=== PATIENT | female | born 1990 | race Caucasian/White ===

== ENCOUNTER 2018-12-07 16:05 | Emergency (ER) | payer OTHER ==
[2018-12-07 18:29] LABS: ADD MAN DIFF? NO
[2018-12-07 18:34] LABS: BASOPHIL # 0.1 10^3/ul (0.0-0.1); EOSINOPHILS # 0.1 10^3/ul (0.0-0.5); EOSINOPHILS % 2.2 % (0.0-7.0); HEMATOCRIT 37.9 % (37.0-47.0); HEMOGLOBIN 11.9 g/dl (12.0-16.0); LYMPHOCYTES # 1.9 10^3/ul (0.8-2.9); LYMPHOCYTES % 31.9 % (15.0-51.0); MEAN CORPUSCULAR HGB CONC 31.4 g/dl (32.0-37.0); MEAN CORPUSCULAR VOLUME 86.1 fl (82.0-101.0); MEAN PLATELET VOLUME 8.9 fl (7.4-10.4); MONOCYTE # 0.5 10^3/ul (0.3-0.9); MONOCYTES % 7.8 % (0.0-11.0); NEUTROPHIL # 3.4 10^3/ul (1.6-7.5); NEUTROPHILS % 56.8 % (39.0-77.0); PLATELET COUNT 348 10^3/UL (140-415); RED CELL DISTRIBUTION WIDTH 18.5 % (11.5-14.5)
[2018-12-07 18:34] LABS: WHITE BLOOD COUNT 5.9 10^3/ul (4.8-10.8)
[2018-12-07 18:42] LABS: INR 1.03; PROTIME 13.6 Sec (11.9-14.9); PT RATIO 1.1
[2018-12-07 18:43] LABS: PARTIAL THROMBOPLASTIN TIME 33.4 Sec (23.0-35.0)
[2018-12-07 18:44] LABS: ALANINE AMINOTRANSFERASE 13 IU/L (13-69); ALBUMIN/GLOBULIN RATIO 1.25; ALKALINE PHOSPHATASE 82 IU/L (42-121); ANION GAP 12 (5-13); ASPARTATE AMINO TRANSFERASE 31 IU/L (15-46); BILIRUBIN,INDIRECT 0.4 mg/dl (0-1.1); BILIRUBIN,TOTAL 0.4 mg/dl (0.2-1.3); BLOOD UREA NITROGEN 16 mg/dl (7-20); CALCIUM 9.1 mg/dl (8.4-10.2); CARBON DIOXIDE 22 mmol/L (21-31); CHLORIDE 108 mmol/L (97-110); CREATININE 0.55 mg/dl (0.44-1.00); Estimated GFR > 60 mL/min (>60); GLUCOSE 100 mg/dl (70-220); LIPASE 48 U/L (23-300); SODIUM 142 mmol/L (135-144)
[2018-12-07 18:45] LABS: POTASSIUM 3.7 mmol/L (3.5-5.1)
[2018-12-07] MEDS: SOD CHLORIDE 0.9% 500 ML IV (19:36)
[2018-12-07] MEDS: morphine 4 MG/ML VIAL IV (19:36)
[2018-12-07] MEDS: ONDANSETRON 4 MG INJ IV (19:36)
[2018-12-07] MEDS: IOHEXOL 300MG/ML 150 ML BTL (19:47)
[2018-12-07] MEDS: SOD CHLORIDE 0.9% 100 ML (19:47)
[2018-12-07] MEDS ORDERED: OXYCODONE/ACETAMINOPHEN (5/325) TAB PO (20:30)
[2018-12-07] MEDS ORDERED: ONDANSETRON (ODT) 4 MG TAB ODT (20:51)
== END 2018-12-07 20:55 | disposition home or self-care (01) ==
LOC: E/R 20:55
DX: R10.84 Generalized abdominal pain (principal); R40.2142 Coma scale, eyes open, spontaneous, at arrival to emergency department; R40.2362 Coma scale, best motor response, obeys commands, at arrival to emergency department; R40.2252 Coma scale, best verbal response, oriented, at arrival to emergency department; R11.2 Nausea with vomiting, unspecified; Z85.038 Personal history of other malignant neoplasm of large intestine
CPT/HCPCS: 74177; 80053; 83690; 84703; 85025; 85610; 85730; 96374; 96375; 99285-25

== ENCOUNTER 2019-06-10 19:28 | Emergency (ER) | payer OTHER ==
[2019-06-10] MEDS: HYDROCODONE/APAP (5/325) TAB PO (20:48)
[2019-06-10] MEDS: LORAZEPAM 1 MG TAB PO (21:15)
[2019-06-10 21:17] LABS: ADD MAN DIFF? NO
[2019-06-10 21:19] LABS: BASOPHILS % 0.6 % (0.0-2.0); EOSINOPHILS # 0.1 10^3/ul (0.0-0.5); HEMATOCRIT 33.3 % (37.0-47.0); HEMOGLOBIN 10.5 g/dl (12.0-16.0); LYMPHOCYTES # 1.2 10^3/ul (0.8-2.9); LYMPHOCYTES % 23.5 % (15.0-51.0); MEAN CORPUSCULAR HEMOGLOBIN 28.1 pg (29.0-33.0); MEAN CORPUSCULAR HGB CONC 31.5 g/dl (32.0-37.0); MEAN PLATELET VOLUME 9.1 fl (7.4-10.4); MONOCYTE # 0.5 10^3/ul (0.3-0.9); MONOCYTES % 10.6 % (0.0-11.0); NEUTROPHIL # 3.1 10^3/ul (1.6-7.5); NEUTROPHILS % 63.1 % (39.0-77.0); PLATELET COUNT 292 10^3/UL (140-415); RED BLOOD COUNT 3.74 10^6/ul (4.20-5.40); RED CELL DISTRIBUTION WIDTH 20.8 % (11.5-14.5)
[2019-06-10 21:35] LABS: ALANINE AMINOTRANSFERASE 17 IU/L (13-69); ALBUMIN 4.2 g/dl (3.3-4.9); ALBUMIN/GLOBULIN RATIO 1.16; ALKALINE PHOSPHATASE 92 IU/L (42-121); ANION GAP 10 (5-13); ASPARTATE AMINO TRANSFERASE 25 IU/L (15-46); BILIRUBIN,INDIRECT 0.5 mg/dl (0-1.1); BILIRUBIN,TOTAL 0.5 mg/dl (0.2-1.3); BLOOD UREA NITROGEN 6 mg/dl (7-20); CALCIUM 9.3 mg/dl (8.4-10.2); CARBON DIOXIDE 26 mmol/L (21-31); CHLORIDE 107 mmol/L (97-110); CREATININE 0.71 mg/dl (0.44-1.00); Estimated GFR > 60 mL/min (>60); GLUCOSE 102 mg/dl (70-220); LIPASE 437 U/L (23-300); POTASSIUM 3.4 mmol/L (3.5-5.1); SODIUM 143 mmol/L (135-144); TOTAL PROTEIN 7.8 g/dl (6.1-8.1)
== END 2019-06-10 22:18 | disposition home or self-care (01) ==
LOC: FTE 19:28
DX: M25.562 Pain in left knee (principal); Z85.9 Personal history of malignant neoplasm, unspecified
CPT/HCPCS: 73562; 80053; 83690; 85025; 99284-25

== ENCOUNTER 2019-07-06 12:06 | Inpatient (IN) | payer OTHER ==
[2019-07-06 15:00] LABS: ADD MAN DIFF? NO
[2019-07-06 15:05] LABS: BASOPHIL # 0.1 10^3/ul (0.0-0.1); EOSINOPHILS # 0.1 10^3/ul (0.0-0.5); EOSINOPHILS % 1.5 % (0.0-7.0); HEMATOCRIT 38.1 % (37.0-47.0); HEMOGLOBIN 12.1 g/dl (12.0-16.0); LYMPHOCYTES # 2.1 10^3/ul (0.8-2.9); LYMPHOCYTES % 26.7 % (15.0-51.0); MEAN CORPUSCULAR HEMOGLOBIN 29.6 pg (29.0-33.0); MEAN CORPUSCULAR HGB CONC 31.8 g/dl (32.0-37.0); MEAN CORPUSCULAR VOLUME 93.2 fl (82.0-101.0); MONOCYTE # 0.3 10^3/ul (0.3-0.9); MONOCYTES % 4.1 % (0.0-11.0); NEUTROPHIL # 5.3 10^3/ul (1.6-7.5); NEUTROPHILS % 66.4 % (39.0-77.0); PLATELET COUNT 312 10^3/UL (140-415); RED BLOOD COUNT 4.09 10^6/ul (4.20-5.40); RED CELL DISTRIBUTION WIDTH 17.4 % (11.5-14.5)
[2019-07-06 15:05] LABS: WHITE BLOOD COUNT 7.9 10^3/ul (4.8-10.8)
[2019-07-06] MEDS: ONDANSETRON 4 MG INJ IV (15:25)
[2019-07-06] MEDS: SOD CHLORIDE 0.9% 1,000 ML IV (15:25)
[2019-07-06] MEDS: morphine 2 MG INJ IV ×2 (15:25→17:21)
[2019-07-06 15:30] LABS: ALANINE AMINOTRANSFERASE 30 IU/L (13-69); ALBUMIN 5.3 g/dl (3.3-4.9); ALKALINE PHOSPHATASE 94 IU/L (42-121); ANION GAP 12 (5-13); ASPARTATE AMINO TRANSFERASE 36 IU/L (15-46); BILIRUBIN,INDIRECT 0.5 mg/dl (0-1.1); BILIRUBIN,TOTAL 0.5 mg/dl (0.2-1.3); BLOOD UREA NITROGEN 19 mg/dl (7-20); CALCIUM 10.2 mg/dl (8.4-10.2); CARBON DIOXIDE 23 mmol/L (21-31); CHLORIDE 104 mmol/L (97-110); CREATININE 0.73 mg/dl (0.44-1.00); Estimated GFR > 60 mL/min (>60); GLUCOSE 96 mg/dl (70-220); LIPASE 69 U/L (23-300); SODIUM 139 mmol/L (135-144); TOTAL PROTEIN 10.1 g/dl (6.1-8.1)
[2019-07-06 15:36] LABS: URINE BLOOD (Dip) POC Trace-lysed (NEGATIVE); URINE GLUCOSE (Dip) POC Negative (NEGATIVE); URINE KETONES (Dip) POC Negative (NEGATIVE); URINE LEUKOCYTE EST (Dip) POC Negative (NEGATIVE); URINE NITRITE (Dip) POC Negative (NEGATIVE); URINE TOTAL PROTEIN POC 1+ (NEGATIVE)
[2019-07-06 15:36] LABS: URINE PH (Dip) POC 5.5 (5.0-8.5)
[2019-07-06] MEDS ORDERED: ACETAMINOPHEN 325 MG TAB PO (18:00)
[2019-07-06] MEDS ORDERED: NACL 0.9% 3 ML SYG IV (18:00)
[2019-07-06] MEDS: HYDROCODONE/APAP (5/325) TAB PO (18:26)
[2019-07-06 18:47] LABS: ADD UMIC YES; UR ASCORBIC ACID NEGATIVE (NEGATIVE); UR BILIRUBIN (Dip) NEGATIVE (NEGATIVE); UR BLOOD (Dip) 1+ mg/dL (NEGATIVE); UR CLARITY SLIGHTLY CLOUDY (CLEAR); UR COLOR YELLOW (YELLOW); UR GLUCOSE (Dip) NEGATIVE (NEGATIVE); UR KETONES (Dip) NEGATIVE (NEGATIVE); UR LEUKOCYTE ESTERASE (Dip) NEGATIVE Leu/ul (NEGATIVE); UR MUCUS FEW /HPF (NONE SEEN); UR NITRITE (Dip) NEGATIVE (NEGATIVE); UR RBC 3 /HPF (0-5); UR SPECIFIC GRAVITY (Dip) 1.018 (1.003-1.030); UR SQUAMOUS EPITHELIAL CELL FEW /HPF (FEW); UR TOTAL PROTEIN (Dip) NEGATIVE (NEGATIVE); UR UROBILINOGEN (Dip) NEGATIVE (NEGATIVE); UR WBC 3 /HPF (0-5)
[2019-07-06] MEDS: LORAZEPAM 0.5 MG TAB PO (18:48)
[2019-07-06] MEDS: FERROUS SULFATE (EC) 325 MG TAB PO (20:48)
[2019-07-06] MEDS: FAMOTIDINE 20 MG TAB PO (20:48)
[2019-07-06] MEDS: HYDROmorphONE 0.5 MG/0.5 ML SYG IV ×2 (20:49→23:56)
[2019-07-07] MEDS: ZOLPIDEM 5 MG TAB PO (01:42)
[2019-07-07 03:09] LABS: ADD UMIC YES; UR ASCORBIC ACID 20 mg/dL (NEGATIVE); UR BACTERIA MANY /HPF (NONE SEEN); UR BILIRUBIN (Dip) NEGATIVE (NEGATIVE); UR BLOOD (Dip) 1+ mg/dL (NEGATIVE); UR CLARITY TURBID (CLEAR); UR COLOR YELLOW (YELLOW); UR GLUCOSE (Dip) NEGATIVE (NEGATIVE); UR KETONES (Dip) NEGATIVE (NEGATIVE); UR LEUKOCYTE ESTERASE (Dip) TRACE Leu/ul (NEGATIVE); UR MUCUS MANY /HPF (NONE SEEN); UR NITRITE (Dip) NEGATIVE (NEGATIVE); UR RBC 21 /HPF (0-5); UR SPECIFIC GRAVITY (Dip) 1.011 (1.003-1.030); UR SQUAMOUS EPITHELIAL CELL MODERATE /HPF (FEW); UR TOTAL PROTEIN (Dip) 2+ mg/dl (NEGATIVE); UR UROBILINOGEN (Dip) NEGATIVE (NEGATIVE); UR WBC 13 /HPF (0-5)
[2019-07-07] MEDS: HYDROmorphONE 0.5 MG/0.5 ML SYG IV ×5 (03:44→22:30)
[2019-07-07 05:50] LABS: ADD MAN DIFF? NO
[2019-07-07 05:52] LABS: WHITE BLOOD COUNT 6.5 10^3/ul (4.8-10.8)
[2019-07-07 05:52] LABS: BASOPHIL # 0.1 10^3/ul (0.0-0.1); BASOPHILS % 0.9 % (0.0-2.0); EOSINOPHILS # 0.2 10^3/ul (0.0-0.5); EOSINOPHILS % 3.7 % (0.0-7.0); HEMOGLOBIN 9.9 g/dl (12.0-16.0); LYMPHOCYTES # 2.4 10^3/ul (0.8-2.9); LYMPHOCYTES % 37.2 % (15.0-51.0); MEAN CORPUSCULAR HEMOGLOBIN 29.3 pg (29.0-33.0); MEAN CORPUSCULAR HGB CONC 30.9 g/dl (32.0-37.0); MEAN CORPUSCULAR VOLUME 94.7 fl (82.0-101.0); MEAN PLATELET VOLUME 9.3 fl (7.4-10.4); MONOCYTE # 0.6 10^3/ul (0.3-0.9); MONOCYTES % 9.8 % (0.0-11.0); NEUTROPHIL # 3.1 10^3/ul (1.6-7.5); NEUTROPHILS % 48.1 % (39.0-77.0); PLATELET COUNT 256 10^3/UL (140-415); RED BLOOD COUNT 3.38 10^6/ul (4.20-5.40); RED CELL DISTRIBUTION WIDTH 17.2 % (11.5-14.5)
[2019-07-07 06:18] LABS: ALANINE AMINOTRANSFERASE 25 IU/L (13-69); ALBUMIN 3.7 g/dl (3.3-4.9); ALBUMIN/GLOBULIN RATIO 1.19; ALKALINE PHOSPHATASE 58 IU/L (42-121); ANION GAP 5 (5-13); ASPARTATE AMINO TRANSFERASE 25 IU/L (15-46); BILIRUBIN,INDIRECT 0.3 mg/dl (0-1.1); BILIRUBIN,TOTAL 0.3 mg/dl (0.2-1.3); BLOOD UREA NITROGEN 16 mg/dl (7-20); CALCIUM 8.9 mg/dl (8.4-10.2); CARBON DIOXIDE 24 mmol/L (21-31); CHLORIDE 107 mmol/L (97-110); CHOLESTEROL 234 mg/dl (100-200); Estimated GFR > 60 mL/min (>60); GLUCOSE 88 mg/dl (70-220); MAGNESIUM 1.7 mg/dl (1.7-2.5); SODIUM 136 mmol/L (135-144); TOTAL PROTEIN 6.8 g/dl (6.1-8.1); TRIGLYCERIDES 188 mg/dl (0-149)
[2019-07-07 06:30] LABS: CHOL/HDL RATIO 1.7 RATIO; HDL CHOLESTEROL 136 mg/dl (34-82); LDL CHOLESTEROL,CALCULATED 60 mg/dl
[2019-07-07] MEDS: LORAZEPAM 0.5 MG TAB PO ×2 (06:44→14:08)
[2019-07-07] MEDS: PANTOPRAZOLE (EC) 40 MG TAB PO (06:44)
[2019-07-07] MEDS: SOD CHLORIDE 0.9% 1,000 ML IV ×2 (06:45→17:06)
[2019-07-07] MEDS: FAMOTIDINE 20 MG TAB PO ×2 (08:20→22:30)
[2019-07-07] MEDS: FLUCONAZOLE 100 MG TAB PO (08:20)
[2019-07-07] MEDS: CEFTRIAXONE 1 GM/NS 50 ML IVPB (08:20)
[2019-07-07] MEDS: FERROUS SULFATE (EC) 325 MG TAB PO ×3 (08:20→22:30)
[2019-07-07] MEDS ORDERED: CEFTRIAXONE 1 GM INJ IVPB (09:00)
[2019-07-07] MEDS ORDERED: CEFTRIAXONE 1 GM/50 ML (PMX) 50 ML IVPB (09:30)
[2019-07-07 10:00] LABS: ADD UMIC YES; UR ASCORBIC ACID NEGATIVE (NEGATIVE); UR BILIRUBIN (Dip) NEGATIVE (NEGATIVE); UR BLOOD (Dip) 1+ mg/dL (NEGATIVE); UR CLARITY CLEAR (CLEAR); UR COLOR YELLOW (YELLOW); UR GLUCOSE (Dip) NEGATIVE (NEGATIVE); UR KETONES (Dip) NEGATIVE (NEGATIVE); UR LEUKOCYTE ESTERASE (Dip) NEGATIVE Leu/ul (NEGATIVE); UR MUCUS FEW /HPF (NONE SEEN); UR NITRITE (Dip) NEGATIVE (NEGATIVE); UR RBC 6 /HPF (0-5); UR SPECIFIC GRAVITY (Dip) 1.016 (1.003-1.030); UR TOTAL PROTEIN (Dip) NEGATIVE (NEGATIVE); UR UROBILINOGEN (Dip) NEGATIVE (NEGATIVE); UR WBC 3 /HPF (0-5)
[2019-07-07 11:20] LABS: FREE T4 (FREE THYROXINE) 0.99 ng/dl (0.79-2.35)
[2019-07-07 14:48] LABS: HAAIG REFLEX REFLEX FILED
[2019-07-07 16:02] LABS: HEPATITIS B SURFACE ANTIGEN NEGATIVE (NEGATIVE)
[2019-07-07 16:12] LABS: HIV 1&2 ANTIBODY NEGATIVE (NEGATIVE)
[2019-07-07 16:20] LABS: HEPATITIS B CORE ANTIBODY NEGATIVE (NEGATIVE); HEPATITIS C VIRAL ANTIBODY NEGATIVE (NEGATIVE)
[2019-07-07 20:47] LABS: ADD UMIC YES; UR ASCORBIC ACID NEGATIVE (NEGATIVE); UR BILIRUBIN (Dip) NEGATIVE (NEGATIVE); UR BLOOD (Dip) 1+ mg/dL (NEGATIVE); UR CLARITY CLEAR (CLEAR); UR COLOR STRAW (YELLOW); UR GLUCOSE (Dip) NEGATIVE (NEGATIVE); UR KETONES (Dip) NEGATIVE (NEGATIVE); UR LEUKOCYTE ESTERASE (Dip) NEGATIVE Leu/ul (NEGATIVE); UR MUCUS FEW /HPF (NONE SEEN); UR NITRITE (Dip) NEGATIVE (NEGATIVE); UR RBC 3 /HPF (0-5); UR SPECIFIC GRAVITY (Dip) 1.011 (1.003-1.030); UR TOTAL PROTEIN (Dip) NEGATIVE (NEGATIVE); UR UROBILINOGEN (Dip) NEGATIVE (NEGATIVE); UR WBC 3 /HPF (0-5)
[2019-07-08] MEDS: SOD CHLORIDE 0.9% 1,000 ML IV ×3 (02:56→17:12)
[2019-07-08] MEDS: HYDROmorphONE 0.5 MG/0.5 ML SYG IV ×5 (03:09→21:24)
[2019-07-08] MEDS: PANTOPRAZOLE (EC) 40 MG TAB PO (06:15)
[2019-07-08 06:37] LABS: ADD MAN DIFF? NO
[2019-07-08 06:49] LABS: WHITE BLOOD COUNT 5.4 10^3/ul (4.8-10.8)
[2019-07-08 06:49] LABS: BASOPHIL # 0.1 10^3/ul (0.0-0.1); BASOPHILS % 0.9 % (0.0-2.0); EOSINOPHILS # 0.2 10^3/ul (0.0-0.5); EOSINOPHILS % 3.5 % (0.0-7.0); HEMATOCRIT 32.1 % (37.0-47.0); HEMOGLOBIN 9.9 g/dl (12.0-16.0); LYMPHOCYTES # 1.8 10^3/ul (0.8-2.9); LYMPHOCYTES % 33.8 % (15.0-51.0); MEAN CORPUSCULAR HEMOGLOBIN 29.2 pg (29.0-33.0); MEAN CORPUSCULAR HGB CONC 30.8 g/dl (32.0-37.0); MEAN CORPUSCULAR VOLUME 94.7 fl (82.0-101.0); MEAN PLATELET VOLUME 10.8 fl (7.4-10.4); MONOCYTE # 0.4 10^3/ul (0.3-0.9); NEUTROPHILS % 54.6 % (39.0-77.0); RED BLOOD COUNT 3.39 10^6/ul (4.20-5.40)
[2019-07-08 06:58] LABS: PLATELET COUNT 382 10^3/UL (140-415); POSITIVE DIFF @See below
[2019-07-08 07:17] LABS: ANION GAP 7 (5-13); BLOOD UREA NITROGEN 8 mg/dl (7-20); CALCIUM 8.9 mg/dl (8.4-10.2); CARBON DIOXIDE 23 mmol/L (21-31); CHLORIDE 105 mmol/L (97-110); CREATININE 0.51 mg/dl (0.44-1.00); Estimated GFR > 60 mL/min (>60); GLUCOSE 89 mg/dl (70-220); MAGNESIUM 1.6 mg/dl (1.7-2.5); PHOSPHORUS 4.7 mg/dl (2.5-4.9); SODIUM 135 mmol/L (135-144)
[2019-07-08] MEDS: CEFTRIAXONE 1 GM/NS 50 ML IVPB (08:09)
[2019-07-08] MEDS: FAMOTIDINE 20 MG TAB PO ×2 (08:09→20:21)
[2019-07-08] MEDS: FLUCONAZOLE 100 MG TAB PO (08:09)
[2019-07-08] MEDS: FERROUS SULFATE (EC) 325 MG TAB PO ×3 (08:09→20:21)
[2019-07-08] MEDS: MAGNESIUM OXIDE 400 MG TAB PO (13:17)
[2019-07-08] MEDS: LORAZEPAM 0.5 MG TAB PO (13:17)
[2019-07-08] MEDS: HYDROCODONE/APAP (5/325) TAB PO (15:12)
[2019-07-08] MEDS: ZOLPIDEM 5 MG TAB PO (22:34)
[2019-07-09] MEDS: HYDROmorphONE 0.5 MG/0.5 ML SYG IV ×5 (05:20→19:48)
[2019-07-09] MEDS: SOD CHLORIDE 0.9% 1,000 ML IV ×2 (05:21→17:09)
[2019-07-09] MEDS: PANTOPRAZOLE (EC) 40 MG TAB PO (06:42)
[2019-07-09] MEDS: CEFTRIAXONE 1 GM/NS 50 ML IVPB (08:55)
[2019-07-09] MEDS: FLUCONAZOLE 100 MG TAB PO (08:55)
[2019-07-09] MEDS: FERROUS SULFATE (EC) 325 MG TAB PO ×3 (08:55→21:11)
[2019-07-09] MEDS: FAMOTIDINE 20 MG TAB PO ×2 (08:55→21:11)
[2019-07-09 09:14] LABS: ADD MAN DIFF? NO
[2019-07-09 09:31] LABS: BASOPHILS % 0.6 % (0.0-2.0); EOSINOPHILS # 0.1 10^3/ul (0.0-0.5); EOSINOPHILS % 2.2 % (0.0-7.0); HEMATOCRIT 31.1 % (37.0-47.0); LYMPHOCYTES # 1.6 10^3/ul (0.8-2.9); LYMPHOCYTES % 24.7 % (15.0-51.0); MEAN CORPUSCULAR HEMOGLOBIN 29.9 pg (29.0-33.0); MEAN CORPUSCULAR HGB CONC 32.2 g/dl (32.0-37.0); MEAN CORPUSCULAR VOLUME 93.1 fl (82.0-101.0); MEAN PLATELET VOLUME 9.3 fl (7.4-10.4); MONOCYTE # 0.4 10^3/ul (0.3-0.9); MONOCYTES % 6.8 % (0.0-11.0); NEUTROPHIL # 4.3 10^3/ul (1.6-7.5); NEUTROPHILS % 65.4 % (39.0-77.0); PLATELET COUNT 298 10^3/UL (140-415); RED BLOOD COUNT 3.34 10^6/ul (4.20-5.40); RED CELL DISTRIBUTION WIDTH 16.7 % (11.5-14.5)
[2019-07-09 09:31] LABS: WHITE BLOOD COUNT 6.5 10^3/ul (4.8-10.8)
[2019-07-09 09:50] LABS: ANION GAP 9 (5-13); BLOOD UREA NITROGEN 8 mg/dl (7-20); CALCIUM 9.2 mg/dl (8.4-10.2); CARBON DIOXIDE 20 mmol/L (21-31); CHLORIDE 107 mmol/L (97-110); CREATININE 0.54 mg/dl (0.44-1.00); Estimated GFR > 60 mL/min (>60); GLUCOSE 86 mg/dl (70-220); MAGNESIUM 1.6 mg/dl (1.7-2.5); PHOSPHORUS 4.4 mg/dl (2.5-4.9); POTASSIUM 4.1 mmol/L (3.5-5.1); SODIUM 136 mmol/L (135-144)
[2019-07-09] MEDS: LORAZEPAM 0.5 MG TAB PO (10:48)
[2019-07-09] MEDS: HYDROCODONE/APAP (5/325) TAB PO ×2 (11:13→17:15)
[2019-07-09] MEDS: MAGNESIUM SULFATE 2 GM/50 ML 50 ML IVPB (12:39)
[2019-07-09] MEDS: LEVOFLOXACIN 500MG/D5W (PMX) 100 ML IVPB (17:08)
[2019-07-09] MEDS: ZOLPIDEM 5 MG TAB PO (21:11)
[2019-07-10] MEDS: HYDROmorphONE 0.5 MG/0.5 ML SYG IV ×6 (00:08→19:08)
[2019-07-10] MEDS: SOD CHLORIDE 0.9% 1,000 ML IV (04:17)
[2019-07-10 06:30] LABS: ADD MAN DIFF? NO
[2019-07-10] MEDS: PANTOPRAZOLE (EC) 40 MG TAB PO (06:31)
[2019-07-10 06:40] LABS: BASOPHILS % 0.8 % (0.0-2.0); EOSINOPHILS # 0.2 10^3/ul (0.0-0.5); EOSINOPHILS % 4.6 % (0.0-7.0); HEMATOCRIT 34.2 % (37.0-47.0); HEMOGLOBIN 10.3 g/dl (12.0-16.0); LYMPHOCYTES # 1.7 10^3/ul (0.8-2.9); MEAN CORPUSCULAR HEMOGLOBIN 29.4 pg (29.0-33.0); MEAN CORPUSCULAR HGB CONC 30.1 g/dl (32.0-37.0); MEAN CORPUSCULAR VOLUME 97.7 fl (82.0-101.0); MEAN PLATELET VOLUME 9.3 fl (7.4-10.4); MONOCYTE # 0.4 10^3/ul (0.3-0.9); MONOCYTES % 7.8 % (0.0-11.0); NEUTROPHIL # 2.8 10^3/ul (1.6-7.5); NEUTROPHILS % 53.6 % (39.0-77.0); PLATELET COUNT 271 10^3/UL (140-415); RED CELL DISTRIBUTION WIDTH 16.9 % (11.5-14.5)
[2019-07-10 06:40] LABS: WHITE BLOOD COUNT 5.2 10^3/ul (4.8-10.8)
[2019-07-10 06:59] LABS: ANION GAP 8 (5-13); BLOOD UREA NITROGEN 8 mg/dl (7-20); CALCIUM 8.8 mg/dl (8.4-10.2); CARBON DIOXIDE 22 mmol/L (21-31); CHLORIDE 107 mmol/L (97-110); CREATININE 0.56 mg/dl (0.44-1.00); Estimated GFR > 60 mL/min (>60); GLUCOSE 88 mg/dl (70-220); MAGNESIUM 1.7 mg/dl (1.7-2.5); PHOSPHORUS 3.9 mg/dl (2.5-4.9); POTASSIUM 3.8 mmol/L (3.5-5.1); SODIUM 137 mmol/L (135-144)
[2019-07-10] MEDS: LORAZEPAM 0.5 MG TAB PO ×2 (07:01→16:06)
[2019-07-10] MEDS: CEFTRIAXONE 1 GM/NS 50 ML IVPB (08:41)
[2019-07-10] MEDS: FERROUS SULFATE (EC) 325 MG TAB PO ×3 (08:41→21:37)
[2019-07-10] MEDS: FAMOTIDINE 20 MG TAB PO ×2 (08:41→21:37)
[2019-07-10] MEDS: FLUCONAZOLE 100 MG TAB PO (08:41)
[2019-07-10] MEDS: CYCLOBENZAPRINE 10 MG TAB PO ×2 (13:00→21:00)
[2019-07-10] MEDS: HYDROCODONE/APAP (5/325) TAB PO (13:11)
[2019-07-11] MEDS: HYDROmorphONE 0.5 MG/0.5 ML SYG IV ×7 (00:36→21:10)
[2019-07-11] MEDS: ZOLPIDEM 5 MG TAB PO (01:22)
[2019-07-11] MEDS: PANTOPRAZOLE (EC) 40 MG TAB PO (06:04)
[2019-07-11 06:17] LABS: ADD MAN DIFF? NO
[2019-07-11 06:22] LABS: BASOPHIL # 0.1 10^3/ul (0.0-0.1); EOSINOPHILS # 0.3 10^3/ul (0.0-0.5); EOSINOPHILS % 4.8 % (0.0-7.0); HEMATOCRIT 35.4 % (37.0-47.0); HEMOGLOBIN 11.1 g/dl (12.0-16.0); LYMPHOCYTES # 2.2 10^3/ul (0.8-2.9); LYMPHOCYTES % 36.5 % (15.0-51.0); MEAN CORPUSCULAR HEMOGLOBIN 29.4 pg (29.0-33.0); MEAN CORPUSCULAR HGB CONC 31.4 g/dl (32.0-37.0); MEAN CORPUSCULAR VOLUME 93.7 fl (82.0-101.0); MEAN PLATELET VOLUME 8.9 fl (7.4-10.4); MONOCYTE # 0.5 10^3/ul (0.3-0.9); MONOCYTES % 7.6 % (0.0-11.0); NEUTROPHILS % 49.9 % (39.0-77.0); PLATELET COUNT 329 10^3/UL (140-415); RED BLOOD COUNT 3.78 10^6/ul (4.20-5.40); RED CELL DISTRIBUTION WIDTH 16.8 % (11.5-14.5)
[2019-07-11 06:49] LABS: ANION GAP 9 (5-13); BLOOD UREA NITROGEN 13 mg/dl (7-20); CALCIUM 9.2 mg/dl (8.4-10.2); CARBON DIOXIDE 23 mmol/L (21-31); CHLORIDE 107 mmol/L (97-110); CREATININE 0.64 mg/dl (0.44-1.00); Estimated GFR > 60 mL/min (>60); GLUCOSE 88 mg/dl (70-220); MAGNESIUM 1.7 mg/dl (1.7-2.5); SODIUM 139 mmol/L (135-144)
[2019-07-11] MEDS: HYDROCODONE/APAP (5/325) TAB PO (08:33)
[2019-07-11] MEDS: FERROUS SULFATE (EC) 325 MG TAB PO ×3 (08:33→21:12)
[2019-07-11] MEDS: CEFTRIAXONE 1 GM/NS 50 ML IVPB (08:33)
[2019-07-11] MEDS: CYCLOBENZAPRINE 10 MG TAB PO ×2 (08:34→08:36)
[2019-07-11] MEDS: FLUCONAZOLE 100 MG TAB PO (08:34)
[2019-07-11] MEDS: FAMOTIDINE 20 MG TAB PO ×2 (08:34→21:12)
[2019-07-11] MEDS: LORAZEPAM 0.5 MG TAB PO (11:26)
[2019-07-11] MEDS: AMPICILLIN/SULB 3 GM/NS (PMX) 100 ML IVPB ×2 (14:22→18:30)
[2019-07-11] MEDS: METHOCARBAMOL 750 MG TAB PO ×2 (14:46→21:12)
[2019-07-11] MEDS ORDERED: HYDROmorphONE 0.5 MG/0.5 ML SYG IM (16:30)
[2019-07-11] MEDS: SOD CHLORIDE 0.9% 100 ML (16:58)
[2019-07-11] MEDS: IOHEXOL 300MG/ML 150 ML BTL (16:58)
[2019-07-12] MEDS: HYDROmorphONE 0.5 MG/0.5 ML SYG IV ×6 (00:47→23:50)
[2019-07-12] MEDS: AMPICILLIN/SULB 3 GM/NS (PMX) 100 ML IVPB ×5 (00:48→23:50)
[2019-07-12] MEDS: PANTOPRAZOLE (EC) 40 MG TAB PO (06:31)
[2019-07-12 07:21] LABS: ADD MAN DIFF? NO
[2019-07-12 07:23] LABS: WHITE BLOOD COUNT 6.9 10^3/ul (4.8-10.8)
[2019-07-12 07:23] LABS: BASOPHIL # 0.1 10^3/ul (0.0-0.1); BASOPHILS % 0.9 % (0.0-2.0); EOSINOPHILS # 0.3 10^3/ul (0.0-0.5); EOSINOPHILS % 4.4 % (0.0-7.0); HEMATOCRIT 33.3 % (37.0-47.0); HEMOGLOBIN 10.5 g/dl (12.0-16.0); LYMPHOCYTES # 2.2 10^3/ul (0.8-2.9); LYMPHOCYTES % 32.4 % (15.0-51.0); MEAN CORPUSCULAR HEMOGLOBIN 29.7 pg (29.0-33.0); MEAN CORPUSCULAR HGB CONC 31.5 g/dl (32.0-37.0); MEAN CORPUSCULAR VOLUME 94.1 fl (82.0-101.0); MEAN PLATELET VOLUME 8.9 fl (7.4-10.4); MONOCYTE # 0.7 10^3/ul (0.3-0.9); MONOCYTES % 9.4 % (0.0-11.0); NEUTROPHIL # 3.6 10^3/ul (1.6-7.5); NEUTROPHILS % 52.8 % (39.0-77.0); PLATELET COUNT 351 10^3/UL (140-415); RED BLOOD COUNT 3.54 10^6/ul (4.20-5.40); RED CELL DISTRIBUTION WIDTH 16.5 % (11.5-14.5)
[2019-07-12 07:48] LABS: ANION GAP 7 (5-13); BLOOD UREA NITROGEN 11 mg/dl (7-20); CALCIUM 8.9 mg/dl (8.4-10.2); CARBON DIOXIDE 22 mmol/L (21-31); CHLORIDE 107 mmol/L (97-110); CREATININE 0.66 mg/dl (0.44-1.00); Estimated GFR > 60 mL/min (>60); GLUCOSE 97 mg/dl (70-220); MAGNESIUM 1.6 mg/dl (1.7-2.5); PHOSPHORUS 4.7 mg/dl (2.5-4.9); POTASSIUM 3.9 mmol/L (3.5-5.1); SODIUM 136 mmol/L (135-144)
[2019-07-12] MEDS: FLUCONAZOLE 100 MG TAB PO (09:22)
[2019-07-12] MEDS: FAMOTIDINE 20 MG TAB PO ×2 (09:22→21:33)
[2019-07-12] MEDS: FERROUS SULFATE (EC) 325 MG TAB PO ×3 (09:22→21:33)
[2019-07-12] MEDS: METHOCARBAMOL 750 MG TAB PO ×3 (09:22→21:34)
[2019-07-12] MEDS: LORAZEPAM 0.5 MG TAB PO ×2 (10:43→21:34)
[2019-07-12] MEDS: GABAPENTIN 300 MG CAP PO ×2 (13:08→21:33)
[2019-07-12] MEDS: MAGNESIUM SULFATE 2 GM/50 ML 50 ML IVPB (13:08)
[2019-07-12] MEDS: HYDROCODONE/APAP (5/325) TAB PO (15:52)
[2019-07-13] MEDS: AMPICILLIN/SULB 3 GM/NS (PMX) 100 ML IVPB ×3 (05:49→20:20)
[2019-07-13 06:09] LABS: ADD MAN DIFF? NO
[2019-07-13 06:14] LABS: WHITE BLOOD COUNT 7.1 10^3/ul (4.8-10.8)
[2019-07-13 06:14] LABS: BASOPHIL # 0.1 10^3/ul (0.0-0.1); BASOPHILS % 0.7 % (0.0-2.0); EOSINOPHILS # 0.3 10^3/ul (0.0-0.5); EOSINOPHILS % 3.8 % (0.0-7.0); HEMATOCRIT 32.5 % (37.0-47.0); HEMOGLOBIN 10.5 g/dl (12.0-16.0); LYMPHOCYTES # 2.1 10^3/ul (0.8-2.9); LYMPHOCYTES % 29.8 % (15.0-51.0); MEAN CORPUSCULAR HGB CONC 32.3 g/dl (32.0-37.0); MEAN CORPUSCULAR VOLUME 92.9 fl (82.0-101.0); MEAN PLATELET VOLUME 8.9 fl (7.4-10.4); MONOCYTE # 0.6 10^3/ul (0.3-0.9); MONOCYTES % 8.3 % (0.0-11.0); NEUTROPHIL # 4.1 10^3/ul (1.6-7.5); NEUTROPHILS % 57.1 % (39.0-77.0); PLATELET COUNT 361 10^3/UL (140-415); RED CELL DISTRIBUTION WIDTH 16.5 % (11.5-14.5)
[2019-07-13] MEDS: PANTOPRAZOLE (EC) 40 MG TAB PO (06:47)
[2019-07-13 07:01] LABS: ANION GAP 8 (5-13); BLOOD UREA NITROGEN 12 mg/dl (7-20); CALCIUM 9.4 mg/dl (8.4-10.2); CARBON DIOXIDE 22 mmol/L (21-31); CHLORIDE 106 mmol/L (97-110); CREATININE 0.76 mg/dl (0.44-1.00); Estimated GFR > 60 mL/min (>60); GLUCOSE 100 mg/dl (70-220); MAGNESIUM 1.8 mg/dl (1.7-2.5); PHOSPHORUS 4.4 mg/dl (2.5-4.9); SODIUM 136 mmol/L (135-144)
[2019-07-13] MEDS: HYDROmorphONE 0.5 MG/0.5 ML SYG IV ×5 (07:23→20:50)
[2019-07-13] MEDS: METHOCARBAMOL 750 MG TAB PO ×3 (08:41→22:01)
[2019-07-13] MEDS: HYDROCODONE/APAP (5/325) TAB PO (08:41)
[2019-07-13] MEDS: GABAPENTIN 300 MG CAP PO ×3 (08:42→22:01)
[2019-07-13] MEDS: FLUCONAZOLE 100 MG TAB PO (08:42)
[2019-07-13] MEDS: FERROUS SULFATE (EC) 325 MG TAB PO ×3 (08:42→22:01)
[2019-07-13] MEDS: FAMOTIDINE 20 MG TAB PO ×2 (08:42→20:50)
[2019-07-13] MEDS: LORAZEPAM 0.5 MG TAB PO (09:55)
[2019-07-13] MEDS ORDERED: HYDROCODONE/APAP (5/325) TAB PO (14:00)
[2019-07-13] MEDS ORDERED: MIDAZOLAM 1 MG/ML 2 ML INJ (17:29)
[2019-07-13] MEDS ORDERED: NEOSTIGMINE 3 MG/3 ML SYRINGE (17:35)
[2019-07-13] MEDS ORDERED: SUCCINYLCHOLINE CHLORIDE 100 MG/5 ML SYG IV (17:35)
[2019-07-13] MEDS ORDERED: PROPOFOL 20 ML (17:35)
[2019-07-13] MEDS ORDERED: LIDOCAINE 2% (SDV) 5 ML INJ (17:35)
[2019-07-13] MEDS ORDERED: ROCURONIUM 50 MG INJ (17:35)
[2019-07-13] MEDS ORDERED: GLYCOPYRROLATE 0.4 MG INJ (17:35)
[2019-07-13] MEDS: IOHEXOL 300MG/ML 30 ML BTL (18:26)
[2019-07-13] MEDS ORDERED: DEXAMETHASONE 4 MG/ML 5 ML INJ (18:45)
[2019-07-13] MEDS ORDERED: ONDANSETRON 4 MG INJ (18:45)
[2019-07-13] MEDS: MEPERIDINE 25 MG INJ IV (19:28)
[2019-07-13] MEDS ORDERED: FENTAnyl 50 MCG/ML VIAL IV ×3 (19:30)
[2019-07-13] MEDS ORDERED: DIPHENHYDRAMINE 50 MG INJ IV (19:30)
[2019-07-13] MEDS ORDERED: HYDROmorphONE 1 MG/5 ML IV SYRINGE IV ×3 (19:30)
[2019-07-13] MEDS ORDERED: MIDAZOLAM 1 MG/ML 2 ML INJ IV (19:30)
[2019-07-13] MEDS ORDERED: ONDANSETRON 4 MG INJ IV (19:30)
[2019-07-13] MEDS: ONDANSETRON 4 MG INJ IV (20:50)
[2019-07-14] MEDS: AMPICILLIN/SULB 3 GM/NS (PMX) 100 ML IVPB ×3 (00:59→11:38)
[2019-07-14] MEDS: HYDROmorphONE 0.5 MG/0.5 ML SYG IV ×3 (02:50→11:38)
[2019-07-14] MEDS: PANTOPRAZOLE (EC) 40 MG TAB PO (06:20)
[2019-07-14] MEDS: METHOCARBAMOL 750 MG TAB PO ×3 (08:14→20:20)
[2019-07-14] MEDS: FLUCONAZOLE 100 MG TAB PO (08:14)
[2019-07-14] MEDS: FAMOTIDINE 20 MG TAB PO ×2 (08:14→20:20)
[2019-07-14] MEDS: FERROUS SULFATE (EC) 325 MG TAB PO ×3 (08:14→20:20)
[2019-07-14] MEDS: GABAPENTIN 300 MG CAP PO ×3 (08:14→20:20)
[2019-07-14] MEDS: LORAZEPAM 0.5 MG TAB PO ×2 (09:26→22:05)
[2019-07-14] MEDS: HYDROmorphONE 1 MG/ML SYG IV ×2 (14:11→20:22)
[2019-07-14] MEDS: AMOXICILLIN 500 MG CAP PO ×2 (14:14→22:05)
[2019-07-14] MEDS: OXYCODONE/ACETAMINOPHEN (5/325) TAB PO (17:01)
[2019-07-15] MEDS: NAPROXEN 500 MG TAB PO (06:43)
[2019-07-15] MEDS: AMOXICILLIN 500 MG CAP PO ×3 (06:43→22:24)
[2019-07-15] MEDS: HYDROmorphONE 1 MG/ML SYG IV ×4 (07:48→22:25)
[2019-07-15] MEDS: METHOCARBAMOL 750 MG TAB PO ×3 (09:37→22:00)
[2019-07-15] MEDS: LORAZEPAM 0.5 MG TAB PO ×2 (09:37→19:38)
[2019-07-15] MEDS: FERROUS SULFATE (EC) 325 MG TAB PO ×3 (09:37→20:33)
[2019-07-15] MEDS: GABAPENTIN 300 MG CAP PO ×3 (09:37→20:33)
[2019-07-15] MEDS: FAMOTIDINE 20 MG TAB PO ×2 (09:37→20:33)
[2019-07-15] MEDS: OXYCODONE/ACETAMINOPHEN (10/325) TAB PO ×2 (10:42→20:34)
[2019-07-16] MEDS: HYDROmorphONE 1 MG/ML SYG IV ×3 (02:21→11:04)
[2019-07-16] MEDS: AMOXICILLIN 500 MG CAP PO (06:20)
[2019-07-16] MEDS: GABAPENTIN 300 MG CAP PO ×2 (08:15→12:17)
[2019-07-16] MEDS: OXYCODONE/ACETAMINOPHEN (10/325) TAB PO ×2 (08:15→12:17)
[2019-07-16] MEDS: FERROUS SULFATE (EC) 325 MG TAB PO ×2 (08:15→12:17)
[2019-07-16] MEDS: METHOCARBAMOL 750 MG TAB PO ×2 (08:15→12:17)
[2019-07-16] MEDS: FAMOTIDINE 20 MG TAB PO (08:15)
== END 2019-07-16 14:25 | disposition home or self-care (01) | DRG 661 ==
LOC: E/R 12:06 → 2NE 17:21
PROC: 0TB78ZX Excision of Left Ureter, Via Natural or Artificial Opening Endoscopic, Diagnostic (ICD-10-PCS; principal; 2019-07-13 17:30)
PROC: 0T778DZ Dilation of Left Ureter with Intraluminal Device, Via Natural or Artificial Opening Endoscopic (ICD-10-PCS; 2019-07-13 17:30)
PROC: 0TP98DZ Removal of Intraluminal Device from Ureter, Via Natural or Artificial Opening Endoscopic (ICD-10-PCS; 2019-07-13 17:30)
DX: N13.6 Pyonephrosis (principal); N13.1 Hydronephrosis with ureteral stricture, not elsewhere classified; R10.2 Pelvic and perineal pain; F41.8 Other specified anxiety disorders; Z85.038 Personal history of other malignant neoplasm of large intestine; R30.0 Dysuria; Z93.2 Ileostomy status; Z96.0 Presence of urogenital implants; B95.2 Enterococcus as the cause of diseases classified elsewhere; B37.9 Candidiasis, unspecified; N39.0 Urinary tract infection, site not specified; B95.5 Unspecified streptococcus as the cause of diseases classified elsewhere; D49.59 Neoplasm of unspecified behavior of other genitourinary organ
CPT/HCPCS: 36415; 74176; 74177; 74430; 76775; 76830; 76856; 80048; 80053; 80061; 81001; 81003; 81025; 83036; 83690; 83735; 84100; 84439; 84443; 84703; 85025; 86703; 86704; 86709; 86803; 87081; 87086; 87102; 87340; 87536; 88300; 88305; 96374; 96375; 96376; 99285-25

== ENCOUNTER 2019-07-21 12:30 | Emergency (ER) | payer OTHER ==
[2019-07-21] MEDS: SOD CHLORIDE 0.9% 1,000 ML IV (15:31)
[2019-07-21] MEDS: ONDANSETRON 4 MG INJ IV (15:31)
[2019-07-21] MEDS: morphine 2 MG INJ IV ×3 (15:31→17:42)
[2019-07-21 16:28] LABS: ADD MAN DIFF? NO
[2019-07-21 16:30] LABS: WHITE BLOOD COUNT 6.8 10^3/ul (4.8-10.8)
[2019-07-21 16:30] LABS: BASOPHIL # 0.1 10^3/ul (0.0-0.1); BASOPHILS % 0.7 % (0.0-2.0); EOSINOPHILS # 0.2 10^3/ul (0.0-0.5); EOSINOPHILS % 2.4 % (0.0-7.0); HEMATOCRIT 36.5 % (37.0-47.0); HEMOGLOBIN 11.6 g/dl (12.0-16.0); LYMPHOCYTES # 1.4 10^3/ul (0.8-2.9); LYMPHOCYTES % 20.6 % (15.0-51.0); MEAN CORPUSCULAR HEMOGLOBIN 29.7 pg (29.0-33.0); MEAN CORPUSCULAR HGB CONC 31.8 g/dl (32.0-37.0); MEAN CORPUSCULAR VOLUME 93.4 fl (82.0-101.0); MEAN PLATELET VOLUME 9.7 fl (7.4-10.4); MONOCYTE # 0.4 10^3/ul (0.3-0.9); NEUTROPHIL # 4.8 10^3/ul (1.6-7.5); NEUTROPHILS % 69.9 % (39.0-77.0); PLATELET COUNT 360 10^3/UL (140-415); RED BLOOD COUNT 3.91 10^6/ul (4.20-5.40); RED CELL DISTRIBUTION WIDTH 15.4 % (11.5-14.5)
[2019-07-21 16:48] LABS: ADD UMIC YES; ALANINE AMINOTRANSFERASE 78 IU/L (13-69); ALBUMIN 4.7 g/dl (3.3-4.9); ALBUMIN/GLOBULIN RATIO 1.23; ALKALINE PHOSPHATASE 187 IU/L (42-121); ANION GAP 11 (5-13); ASPARTATE AMINO TRANSFERASE 63 IU/L (15-46); BILIRUBIN,INDIRECT 0.5 mg/dl (0-1.1); BILIRUBIN,TOTAL 0.5 mg/dl (0.2-1.3); BLOOD UREA NITROGEN 8 mg/dl (7-20); CALCIUM 9.5 mg/dl (8.4-10.2); CARBON DIOXIDE 23 mmol/L (21-31); CHLORIDE 104 mmol/L (97-110); CREATININE 0.56 mg/dl (0.44-1.00); Estimated GFR > 60 mL/min (>60); GLUCOSE 99 mg/dl (70-220); LIPASE 52 U/L (23-300); POTASSIUM 4.3 mmol/L (3.5-5.1); SODIUM 138 mmol/L (135-144); TOTAL PROTEIN 8.5 g/dl (6.1-8.1); UR ASCORBIC ACID NEGATIVE (NEGATIVE); UR BACTERIA FEW /HPF (NONE SEEN); UR BILIRUBIN (Dip) NEGATIVE (NEGATIVE); UR BLOOD (Dip) 3+ mg/dL (NEGATIVE); UR BUDDING YEAST MANY /HPF (NONE SEEN); UR CLARITY CLOUDY (CLEAR); UR COLOR AMBER (YELLOW); UR GLUCOSE (Dip) NEGATIVE (NEGATIVE); UR KETONES (Dip) NEGATIVE (NEGATIVE); UR LEUKOCYTE ESTERASE (Dip) 1+ Leu/ul (NEGATIVE); UR MUCUS MANY /HPF (NONE SEEN); UR NITRITE (Dip) NEGATIVE (NEGATIVE); UR RBC > 182 /HPF (0-5); UR SPECIFIC GRAVITY (Dip) 1.019 (1.003-1.030); UR SQUAMOUS EPITHELIAL CELL FEW /HPF (FEW); UR TOTAL PROTEIN (Dip) 3+ mg/dl (NEGATIVE); UR UROBILINOGEN (Dip) NEGATIVE (NEGATIVE); UR WBC 139 /HPF (0-5)
[2019-07-21] MEDS: CEFTRIAXONE 1 GM/50 ML (PMX) 50 ML IVPB (17:20)
== END 2019-07-21 18:36 | disposition home or self-care (01) ==
LOC: FTE 12:30
DX: N39.0 Urinary tract infection, site not specified (principal); Z85.038 Personal history of other malignant neoplasm of large intestine
CPT/HCPCS: 36415; 76775; 80053; 81001; 81025; 83690; 85025; 87086; 96374; 96375; 96376; 99285-25

== ENCOUNTER 2019-07-24 13:40 | Emergency (ER) | payer OTHER ==
[2019-07-24] MEDS: ONDANSETRON 4 MG INJ IV (15:36)
[2019-07-24] MEDS: morphine 2 MG INJ IV (15:36)
[2019-07-24] MEDS: FAMOTIDINE 20 MG INJ IV (15:36)
[2019-07-24 17:20] LABS: ADD MAN DIFF? NO
[2019-07-24 17:24] LABS: WHITE BLOOD COUNT 5.7 10^3/ul (4.8-10.8)
[2019-07-24 17:24] LABS: BASOPHIL # 0.1 10^3/ul (0.0-0.1); EOSINOPHILS # 0.1 10^3/ul (0.0-0.5); EOSINOPHILS % 1.2 % (0.0-7.0); HEMATOCRIT 32.4 % (37.0-47.0); HEMOGLOBIN 10.3 g/dl (12.0-16.0); LYMPHOCYTES # 1.6 10^3/ul (0.8-2.9); LYMPHOCYTES % 27.4 % (15.0-51.0); MEAN CORPUSCULAR HGB CONC 31.8 g/dl (32.0-37.0); MEAN CORPUSCULAR VOLUME 94.5 fl (82.0-101.0); MEAN PLATELET VOLUME 9.2 fl (7.4-10.4); MONOCYTE # 0.3 10^3/ul (0.3-0.9); MONOCYTES % 5.9 % (0.0-11.0); NEUTROPHIL # 3.7 10^3/ul (1.6-7.5); NEUTROPHILS % 64.3 % (39.0-77.0); PLATELET COUNT 315 10^3/UL (140-415); RED BLOOD COUNT 3.43 10^6/ul (4.20-5.40); RED CELL DISTRIBUTION WIDTH 14.5 % (11.5-14.5)
[2019-07-24 17:40] LABS: ALANINE AMINOTRANSFERASE 52 IU/L (13-69); ALBUMIN 4.2 g/dl (3.3-4.9); ALBUMIN/GLOBULIN RATIO 1.31; ALKALINE PHOSPHATASE 135 IU/L (42-121); ANION GAP 7 (5-13); ASPARTATE AMINO TRANSFERASE 34 IU/L (15-46); BILIRUBIN,INDIRECT 0.3 mg/dl (0-1.1); BILIRUBIN,TOTAL 0.3 mg/dl (0.2-1.3); BLOOD UREA NITROGEN 8 mg/dl (7-20); CALCIUM 9.3 mg/dl (8.4-10.2); CARBON DIOXIDE 22 mmol/L (21-31); CHLORIDE 109 mmol/L (97-110); CREATININE 0.71 mg/dl (0.44-1.00); Estimated GFR > 60 mL/min (>60); GLUCOSE 101 mg/dl (70-220); LIPASE 35 U/L (23-300); POTASSIUM 3.7 mmol/L (3.5-5.1); SODIUM 138 mmol/L (135-144); TOTAL PROTEIN 7.4 g/dl (6.1-8.1)
[2019-07-24 17:49] LABS: ADD UMIC YES; UR ASCORBIC ACID NEGATIVE (NEGATIVE); UR BILIRUBIN (Dip) NEGATIVE (NEGATIVE); UR BLOOD (Dip) 3+ mg/dL (NEGATIVE); UR CLARITY CLOUDY (CLEAR); UR COLOR YELLOW (YELLOW); UR GLUCOSE (Dip) NEGATIVE (NEGATIVE); UR KETONES (Dip) NEGATIVE (NEGATIVE); UR LEUKOCYTE ESTERASE (Dip) 1+ Leu/ul (NEGATIVE); UR MUCUS MANY /HPF (NONE SEEN); UR NITRITE (Dip) NEGATIVE (NEGATIVE); UR RBC > 182 /HPF (0-5); UR SPECIFIC GRAVITY (Dip) 1.019 (1.003-1.030); UR SQUAMOUS EPITHELIAL CELL MODERATE /HPF (FEW); UR TOTAL PROTEIN (Dip) 2+ mg/dl (NEGATIVE); UR UROBILINOGEN (Dip) NEGATIVE (NEGATIVE); UR WBC 50 /HPF (0-5)
[2019-07-24] MEDS: ACETAMINOPHEN 325 MG TAB PO (18:23)
[2019-07-24] MEDS: LORAZEPAM 1 MG TAB PO (18:30)
[2019-07-24] MEDS: CEFTRIAXONE 1 GM/50 ML (PMX) 50 ML IVPB (18:30)
== END 2019-07-24 19:05 | disposition home or self-care (01) ==
LOC: E/R 13:40
DX: N12 Tubulo-interstitial nephritis, not specified as acute or chronic (principal)
CPT/HCPCS: 80053; 81001; 83690; 85025; 96374; 96375; 99284-25